=== PATIENT | male | born 1950 | race Caucasian/White ===

== ENCOUNTER → 2018-06-24 07:28 | Outpatient (CLI) | payer MEDICARE, OTHER ==
[2018-06-24 07:56] LABS: EOSINOPHILS 2.9 % (0-7); HEMATOCRIT 48.3 % (42.0-54.0); HEMOGLOBIN 16.7 g/dL (13.5-17.5); IMMATURE GRANULOCYTES 0.3 % (0-5); LYMPHOCYTES 29.2 % (15-50); MCH 30.5 pg (26.0-34.0); MCHC 34.6 g/dL (31.0-37.0); MCV 88.3 fL (80.0-100.0); MEAN PLATELET VOLUME 9.6 fL (7.4-10.4); MONOCYTES 8.6 % (2-11); PLATELET COUNT 220 10x3/uL (130-400); RBC 5.47 10x6/uL (4.20-6.10); RDW 14.4 % (11.5-14.5); WBC 7.8 10x3/uL (4.8-10.8)
[2018-06-24 08:12] LABS: ALBUMIN 3.5 g/dL (3.4-5.0); BILIRUBIN - DIRECT 0.25 mg/dL (0.00-0.30); BILIRUBIN - INDIRECT 1.03 mg/dL (0.00-1.00); BILIRUBIN - TOTAL 1.28 mg/dL (0.2-1.3); PROTEIN - SERUM 7.5 g/dL (6.4-8.2)
[2018-06-24 08:25] LABS: APTT 29.7 SECONDS (22.8-39.4); INR 1.02 (0.85-1.17); PROTIME 12.9 SECONDS (11.6-15.0)
[2018-06-25 08:20] LABS: HEPATITIS C ANTIBODY <0.1 S/CO RAT (0.0-0.9)
[2018-06-25 11:19] LABS: ALPHA FETOPROTEIN -(TUMOR MRK) 2.5 ng/mL (0.0-8.3); ANA REFLEX - DIRECT Negative (Negative)
[2018-06-26 16:14] LABS: SMOOTH MUSCLE ABS (ACTIN) 12 Units (0-19)
== END | disposition home or self-care (01) ==
LOC: D.MRI 07:28
PROVIDERS: Internal Medicine Gastroenterology
DX: K58.0 Irritable bowel syndrome with diarrhea (principal); E80.6 Other disorders of bilirubin metabolism; K83.8 Other specified diseases of biliary tract; R10.9 Unspecified abdominal pain; R93.5 Abnormal findings on diagnostic imaging of other abdominal regions, including retroperitoneum; R42 Dizziness and giddiness; K64.9 Unspecified hemorrhoids